=== PATIENT | male | born 1995 | race Caucasian/White ===

== ENCOUNTER 2017-05-04 13:01 | Day surgery (SDC) | payer BC ==
[~2017-05-04] VITALS: Ht 193 cm; Wt 102.9 kg
[2017-05-04 13:24] VITALS: BP 139/86; PULSE 63; TEMP 98.1
[2017-05-04] MEDS ORDERED: NAPROSYN500 MG PO (13:27)
[2017-05-04] MEDS ORDERED: TYLENOL 500MG500 MG PO (13:27)
[2017-05-04 15:00] VITALS: BP 135/79; PULSE 68; TEMP 97.9
[2017-05-04 15:15] VITALS: BP 132/80; PULSE 65
[2017-05-04 15:30] VITALS: BP 132/78; PULSE 64
[2017-05-04 16:37] VITALS: BP 104/82; PULSE 54
== END 2017-05-04 15:50 | disposition home or self-care (01) ==
LOC: SDCO 13:01
DX: K20.9 Esophagitis, unspecified (principal); K21.9 Gastro-esophageal reflux disease without esophagitis; K29.30 Chronic superficial gastritis without bleeding; R19.7 Diarrhea, unspecified
CPT/HCPCS: J2250; J2405; J3010; J7030

== ENCOUNTER → 2017-05-18 | Outpatient (CLI) | payer BC ==
[~2017-05-18] MED LIST: NAPROSYN500 MG PO; TYLENOL 500MG500 MG PO
== END ==
LOC: COL.RAD 09:34
DX: R11.2 Nausea with vomiting, unspecified (principal); R19.7 Diarrhea, unspecified; R10.9 Unspecified abdominal pain

== ENCOUNTER → 2020-05-30 | Outpatient (CLI) | payer BC ==
[~2020-05-30] VITALS: Ht 193 cm; Wt 125.0 kg
[2020-05-30 21:16] VITALS: TEMP 98.3
[2020-05-31 00:59] VITALS: BP 150/99; PULSE 85
== END ==
LOC: COL.LAB 18:52
DX: Z20.3 Contact with and (suspected) exposure to rabies (principal)

== ENCOUNTER 2020-06-13 18:15 | Outpatient (RCR) | payer BC ==
[2020-06-13 18:34] VITALS: BP 125/91; PULSE 100; TEMP 97.4
== END 2020-08-31 | disposition home or self-care (01) ==
LOC: COL.ER
DX: Z23 Encounter for immunization (principal); Z20.3 Contact with and (suspected) exposure to rabies